=== PATIENT | female | born 1980 | race African-American/Black ===

== ENCOUNTER 2022-12-06 04:08 | Day surgery (SDC) | payer OTHER ==
[2022-12-01 09:45] VITALS: BMI 25.7
[2022-12-06] MEDS ORDERED: PROPOFOL 40 ML ONE (12:29)
[2022-12-06] MEDS ORDERED: MIDAZOLAM HCL 2 MG/2 ML SINGLE DOSE VIAL ONE (12:29)
[2022-12-06] MEDS ORDERED: ACETAMINOPHEN 1000 MG/100 ML BAG IVPB ONE (14:25)
[2022-12-06] MEDS ORDERED: oxyCODONE HCL 5 MG TABLET PO PRN (14:25)
[2022-12-06] MEDS ORDERED: ONDANSETRON 4 MG/2 ML VIAL IVPUSH PRN (14:25)
[2022-12-06] MEDS ORDERED: ACETAMINOPHEN INJECTION 100 ML IVPB ONE (14:26)
[2022-12-06 16:15] VITALS: RESP 18
[2022-12-06 17:01] VITALS: BP 129/89; PULSE 79; TEMP 97.9
== END 2022-12-06 17:05 | disposition home or self-care (01) ==
LOC: JASU-SURG 04:08
PROVIDERS: ATTEND Student in an Organized Health Care Education/Training Program
PROC: 0UB98ZZ Excision of Uterus, Via Natural or Artificial Opening Endoscopic (ICD-10-PCS; principal; 2022-12-06 12:30)
DX: N93.9 Abnormal uterine and vaginal bleeding, unspecified (principal); D25.9 Leiomyoma of uterus, unspecified; N84.0 Polyp of corpus uteri
CPT/HCPCS: 81025; 88305-TC; 94760